=== PATIENT | male | born 1990 | race Caucasian/White ===

== ENCOUNTER 2019-11-28 13:50 | Emergency (ER) | payer MEDICAID ==
[~2019-11-28] VITALS: Ht 165.1 cm; Wt 62.6 kg
[2019-11-28 14:09] VITALS: Ht 165.1 cm; Wt 62.6 kg
[2019-11-28 15:10] VITALS: BP 127/83
== END 2019-11-28 15:10 | disposition home or self-care (01) ==
LOC: ED 13:50
DX: R00.2 Palpitations (principal); R07.89 Other chest pain

== ENCOUNTER 2019-12-17 11:31 | Emergency (ER) | payer MEDICAID ==
[~2019-12-17] VITALS: Ht 165.1 cm; Wt 60.8 kg
[2019-12-17 11:45] VITALS: BP 121/75; Ht 165.1 cm; Wt 60.8 kg
== END 2019-12-17 13:18 | disposition home or self-care (01) ==
LOC: ED 11:31
DX: R07.89 Other chest pain (principal)
CPT/HCPCS: J1885; Q0092